=== PATIENT | female | born 1995 | race African-American/Black ===

== ENCOUNTER 2020-04-12 20:28 | Emergency (ER) | payer OTHER ==
[~2020-04-12] VITALS: Ht 165.1 cm; Wt 63.5 kg
--- NOTE | 2020-04-12 21:05 | NUR ---
ED Nurse Note: Pt arrived in wheelchair c/o RT ankle pain since 1500. Pt stated she was getting out of her work car and landed on her RT ankle. Pt unable to put pressure on RT leg, able to move toes with major discomfort. Pt denies taking pain meds and blood thinners. Pt is crying and diaphoretic. changed into a gown; attached to monitor. all safety measures met.
[2020-04-12] MEDS ORDERED: Ketorolac 60mg Inj IM ONE (21:15)
[2020-04-12] MEDS ORDERED: LORazepam 1mg tab ORAL ONE (21:15)
--- NOTE | 2020-04-12 21:24 | NUR ---
ED Nurse Note: pt unable to provide urine at this time; will try again later. pt medicated. imaging done at bedside; tolerated well.
--- NOTE | 2020-04-12 21:48 | NUR ---
ED Nurse Note: patient resting comfortably in bed on the phone; laughing and smiling. patient denies pain.
[2020-04-12] MEDS ORDERED: IBUPROFEN600 M1 ORAL (21:51)
[2020-04-12] MEDS ORDERED: NORCO 5-325 TA1 EAC1 ORAL (21:51)
--- NOTE | 2020-04-12 22:12 | Emergency Room Report ---
History of Present Illness General Chief Complaint: Lower Extremity Injury Source: Patient Present Illness HPI 24-year-old otherwise healthy female here after rolling her right ankle. Patient says that she was getting out of her work truck when she rolled her ankle on uneven surface on the ground. She says that the ankle was outwardly deviated. She says that she fell to the ground and never hit her head or had any loss of consciousness or other injury. She was ambulating on the leg with full weightbearing for the last 6 hours before coming to the emergency department. Says that the pain is now worsening. Denies any focal numbness or weakness or compartment swelling. No knee pain. Pain is only located just proximal to the right ankle diffusely, dull in nature, does not radiate. 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 Patient History Last Menstrual Period: na Nursing Documentation-[facility] Past Medical History: No Stated History Review of Systems All Other Systems: negative except mentioned in HPI Physical Exam Vital Signs Date Time Temp Pulse Resp B/P (MAP) Pulse Ox O2 Delivery O2 Flow Rate FiO2 04/12/20 21:03 98.8 85 22 171/85 (113) 99 Room Air Sp02 EP Interpretation: reviewed, normal General Appearance: no apparent distress, alert, GCS 15, non-toxic Head: normocephalic, atraumatic Eyes: bilateral eye normal inspection, bilateral eye PERRL ENT: hearing grossly normal, normal pharynx, no angioedema, normal voice Neck: full range of motion, supple/symm/no masses Respiratory: chest non-tender, lungs clear, normal breath sounds, speaking full sentences Cardiovascular #1: regular rate, rhythm, no edema Cardiovascular #2: 2+ carotid (R), 2+ carotid (L), 2+ radial (R), 2+ radial (L) , 2+ dorsalis pedis (R), 2+ dorsalis pedis (L) Gastrointestinal: normal bowel sounds, non tender, soft, non-distended, no guarding, no rebound Rectal: deferred Genitourinary: normal inspection, no CVA tenderness Musculoskeletal: back normal, normal range of motion, calf tenderness, gait/ station normal, other - No obvious bony abnormalities. No knee pain on palpation or range of motion. Normal range of motion of the right ankle but limited secondary to pain. Neurovascular intact. Normal capillary refill. Neurologic: alert, motor strength/tone normal, oriented x3, sensory intact, responsive, speech normal Psychiatric: judgement/insight normal, memory normal, mood/affect normal, no suicidal/homicidal ideation Reflexes: 3+ bicep (R), 3+ bicep (L), 3+ tricep (R), 3+ tricep (L), 3+ knee (R) , 3+ knee (L) Lymphatic: no adenopathy Procedures Splinting Splinting : Consent: Verbal Splint: Short-leg post mold splint right lower extremity Pre-Proc Neuro Vasc Exam: normal Post-Proc Neuro Vasc Exam: normal Patient Tolerated: Well Complications: None Medical Decision Making Diagnostic Impression: Primary Impression: Ankle sprain Additional Impression: High ankle sprain ER Course Ankle x-ray: No bone or joint abnormalities. No dislocations or fractures. Foot x-ray: No bone or joint abnormalities. No dislocations or fractures. 24-year-old female here with right ankle pain after everting the right foot incidentally 6 hours prior to come to the emergency department. She was ambulating on the foot all day and says the pain was gradually worsening throughout the day. She was neurovascularly intact in the emergency department had normal capillary refill and normal strength and sensation of the right lower extremity. She did not have any other injuries. X-rays were unremarkable. Patient was told that she likely has an ankle sprain and was placed in a short posterior mold splint and given crutches and instructed on use of the crutches. She was given information to follow-up with orthopedic surgery as well as occupational health. Discharged in stable condition. Last Vital Signs Date Time Temp Pulse Resp B/P (MAP) Pulse Ox O2 Delivery O2 Flow Rate FiO2 04/12/20 21:44 98.8 04/12/20 21:03 85 22 171/85 (113) 99 Room Air Disposition: HOME, SELF-CARE Condition: Stable Scripts Hydrocodone Bit/Acetaminophen 5-325* (NORCO 5-325 TABLET*) 1 Each Tablet 1 TAB ORAL Q4H PRN for For Pain, #10 TAB Prov: Mario Mcgowan M.D. 04/12/20 Ibuprofen* (MOTRIN*) 600 Mg Tablet 600 MG ORAL Q6H PRN for FOR PAIN, #20 TAB 0 Refills Prov: Mario Mcgowan M.D. 04/12/20 Patient Instructions: Ankle Sprain, Foot Sprain Additional Instructions: Please follow-up with your primary care doctor in the next 1 to 3 days to discuss this emergency department visit and for reevaluation. If you have any new or worsening symptoms please return to the emergency department for reevaluation. Mario Mcgowan M.D. Apr 12, 2020 22:12
--- NOTE | 2020-04-12 22:15 | NUR ---
ED Nurse Note: splint applied to right ankle by michael. provided with crutches and teaching; patient able to return demonstrate proper crutch walk.
--- NOTE | 2020-04-12 23:00 | NUR ---
ER DISCHARGE NOTE: Patient is cleared to be discharged per ERMD, pt is aox4, on room air, with stable vital signs. pt was given dc and prescription instructions, pt was able to verbalize understanding, pt id band removed. pt is able to ambulate with crutches. pt took all belongings.
[2020-04-12 23:05] VITALS: BP 122/79
--- NOTE | 2020-04-13 17:38 | Diagnostic Imaging Report ---
Indication: Pain, trauma Technique: 3 views of the right ankle Comparison: none Findings: No acute fractures. No dislocations. The joint spaces are preserved. Impression: Negative
--- NOTE | 2020-04-13 17:39 | Diagnostic Imaging Report ---
Indication: Pain, trauma Technique: 3 views right foot Comparison: none Findings: No acute fractures. No dislocations. The joint spaces are preserved. Impression: Negative
== END 2020-04-12 23:05 | disposition home or self-care (01) ==
LOC: EMR 21:38
DX: S93.401A Sprain of unspecified ligament of right ankle, initial encounter (principal); X58.XXXA Exposure to other specified factors, initial encounter; Y92.9 Unspecified place or not applicable
CPT/HCPCS: 29515; 96372; 99284

== ENCOUNTER 2020-04-19 08:54 | Emergency (ER) | payer OTHER ==
[~2020-04-19] VITALS: Ht 160 cm; Wt 63.5 kg
[~2020-04-19 08:54] MED LIST: IBUPROFEN600 M1 ORAL; NORCO 5-325 TA1 EAC1 ORAL
[2020-04-19] MEDS ORDERED: TYLENOL EXTRA500 MG ORAL (09:22)
--- NOTE | 2020-04-19 09:22 | Emergency Room Report ---
History of Present Illness General Chief Complaint: Lower Extremity Injury Source: Patient Present Illness HPI Patient is an -[place] 24-year-old female presenting for right ankle sprain recheck. Patient states she went to [place] yesterday and got repeat x- rays that were all negative. She was initially seen after she rolled her ankle on April 12, 2020. Due to significant pain and swelling, she was splinted right leg posterior short leg splint which she states helped With the pain. She has been resting the ankle, icing it, and using the splint for support and states that her pain is now manageable with Motrin. She feels well enough to return back to work and is requesting work clearance for [employer]. The patient's symptoms were gradual onset, severity was moderate, duration since 04/12/2020 Quality: achin denies headache, neck pain, back pain, reinjury, numbness, paresthesia, paralysis, pulselessness, Chest pain, shortness of breath or other complaints. Past medical history: Denies Past surgical history: Denies Smoking: Denies Alcohol use: Occasional Drug use: Denies Review of systems: CONST: No fevers or chills, No night sweats PULMONARY: No productive cough, No shortness of breath CARDIAC: No chest pain, No palpitations GI: No vomiting, No diarrhea , No melena_or_BRBPR : No dysuria, No hematuria, No discharge NEURO: No new_focal_weakness_or_numbness, No confusion, No vision changes 14 point Review of Systems is otherwise negative except per HPI Physical Exam: GENERAL: Awake_alert_ nontoxic, no acute distress Spo2 98% on RA -normal EYES: Extraocular muscles are intact. Conjunctivae clear. Lids without swelling ENT: External nose and ear normal_in_appearance. Oropharynx clear. Head_ atraumatic, Moist_oral_mucosa NECK: No JVD. No meningismus. No thyromegaly. Supple. Trachea midline RESP: Normal respiratory effort. Symmetric rise. No stridor. Clear_to_ auscultation_No_rales_No_wheezes CARDIAC: Regular rate and regular rhytm. No_significant pedal edema. ABDOMEN: Soft. Nondistended. Nontender_No_rebound_or_guarding. MSK: Normal muscle tone, without rigidity. Extremities without asymmetric deformity or swelling. SKIN: Warm and dry. No visible cyanosis or pallor NEUROLOGIC: Alert, oriented x3. Motor_and_sensation_grossly_intact. No truncal ataxia. Gait_normal Psych: Normal mood and affect, normal judgment and insight - COORDINATION OF CARE Case was discussed with: Patient Previous ED imaging and records were interpreted as part of the medical decision making: Medical Decision Making/Plan: Differential diagnosis includes musculoskeletal pain, fracture, dislocation, compartment syndrome, arterial occlusion, nerve damage, among others. Distally the patient has capillary refill <2 seconds and strong pulses. There is no pallor or pain out of proportion to exam. There is no significant swelling, deformity, or report of significant dislocation that subsequently reduced. No evidence of arterial occlusion or injury. The associated joints have full range of motion without any significant pain or restriction in mobility. No evidence at this time of major ligamentous disruption. Xrays were reviewed of the right lower extremity from date of initial injury and are within normal limits, compartments are soft, the patient is able to bear weight and has no neurologic deficits. No evidence of fracture, dislocation, foreign body, significant nerve damage, compartment syndrome at this time. She states that [facility]'s films yesterday were also negative for fracture. Doubt occult fracture at this time as symptoms have all resolved. Patient was offered another xray of the R ankle today, but she declines. However, the patient was informed that occult fractures or foreign bodies are not always apparent on their first visit and understand to follow up with their regular doctor for a reevaluation within the next 2-3 days, to ensure their symptoms completely resolve. Patient is medically cleared for back to work. Recommend weightbearing as tolerated. Procedure Note Right lower extremity Ed wrap: To right ankle Splint applied by tech with direct supervision by me. Reassessed following splint application. Neurovascular intact. Compartments remain soft and compressible. Pt tolerated well without complications. Splint care instructions were discussed. Pt to follow up with orthopedics within 1 week to prevent future arthritis and group home disability. Allergies: Coded Allergies: No Known Allergies (Unverified , 04/12/20) COVID-19 Screening Contact w/high risk pt: No Experienced COVID-19 symptoms?: No COVID-19 Testing performed POLISHER HAND: No Patient History Last Menstrual Period: 02/18/20 Nursing Documentation-[facility] Past Medical History: No Stated History Physical Exam Vital Signs Date Time Temp Pulse Resp B/P (MAP) Pulse Ox O2 Delivery O2 Flow Rate FiO2 04/19/20 08:59 97.0 85 16 103/71 (82) 99 Room Air Medical Decision Making Diagnostic Impression: Primary Impression: Ankle sprain Last Vital Signs Date Time Temp Pulse Resp B/P (MAP) Pulse Ox O2 Delivery O2 Flow Rate FiO2 04/19/20 08:59 97.0 85 16 103/71 (82) 99 Room Air Disposition: HOME, SELF-CARE Admit Decision Time: 09:20 Scripts Acetaminophen* (TYLENOL EXTRA STRENGTH*) 500 Mg Tablet 500 MG ORAL Q8H PRN for Prn Headache/Temp > 101, #30 TAB 0 Refills Prov: Betty Hernandez D.O. 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 You are cleared to go back to the [facility] for work. Please only bear weight on your right ankle As tolerated. Use ED Wrap , rest, elevated and ICE your ankle for pain control Follow-up with your doctor sooner if your condition requires a more timely clinical reevaluation. Return to the emergency department immediately if you feel that your condition is worsening or if you have any new or concerning symptoms. Review your discharge instructions and take any prescriptions given as instructed. Betty Hernandez D.O. Apr 19, 2020 09:22
[2020-04-19 09:29] VITALS: BP 118/76
== END 2020-04-19 09:29 | disposition home or self-care (01) ==
LOC: EMR 09:25
DX: S93.401A Sprain of unspecified ligament of right ankle, initial encounter (principal); X58.XXXA Exposure to other specified factors, initial encounter; Y92.9 Unspecified place or not applicable
CPT/HCPCS: 99282